=== PATIENT | female | born 1935 | race Caucasian/White ===

== ENCOUNTER 2019-09-28 09:38 | Observation (INO) ==
[2019-09-28 11:38] LABS: ABS Eosinophils 0.1 10^3/ul (0-0.6); ABS Lymphocytes 0.6 10^3/ul (1.0-4.8); ABS Monocytes 0.5 10^3/ul (0-0.8); Eosinophil % 1.6 %; Hematocrit 44 % (35-47); Hemoglobin 14.5 g/dL (12.0-16.0); Mean Corpuscular HGB Conc 33 g/dL (31-36); Mean Corpuscular Hemoglobin 29 pg (27-31); Mean Corpuscular Volume 89 fL (80-97); Mean Platelet Volume 9.3 fL (7.4-10.4); Platelet Count 144 10^3/uL (150-450); Red Blood Count 4.98 10^6 /uL (3.70-4.87); Red Cell Distribution Width 16 % (10-15); White Blood Count 5.4 10^3/uL (3.5-10.8)
[2019-09-28 12:17] LABS: Albumin 4.3 g/dL (3.2-5.2); Albumin/Globulin Ratio 1.6 (1-3); BUN/Creatinine Ratio 26.5 (8-20); Calcium 10.1 mg/dL (8.6-10.3); EGFR African American 79.8 (>60); Globulin 2.7 g/dL (2-4); Potassium 3.9 mmol/L (3.5-5.0); Total Bilirubin 0.6 mg/dL (0.2-1.0)
[2019-09-29 07:30] VITALS: BP 138/57
== END 2019-09-29 13:00 ==
LOC: MED 09:38 → ED 09:38 → MED 15:43
PROVIDERS: ADMIT Hospitalist; ATTEND Internal Medicine